=== PATIENT | male | born 1960 | race Caucasian/White ===

== ENCOUNTER 2017-01-18 12:21 | Emergency (ER) | payer MEDICAID ==
[~2017-01-18] VITALS: Ht 170.2 cm; Wt 73.5 kg
[2017-01-18 12:32] VITALS: BP 117/75; PULSE 64; RESP 16; TEMP 97.4; O2SAT 99
--- NOTE | 2017-01-18 12:39 | NUR ---
Patient to ER bed 6 to gown for evaluation. Side rails up. Report given to Renetta SCHWARTZ.
[2017-01-18] MEDS ORDERED: AZITHROMYCIN 250 MG TABLET PO ONE (13:00)
[2017-01-18] MEDS ORDERED: cefTRIAXone 250 MG in LIDOCAINE 1%, 20 ML MDV 0.9 ML IM ONE (13:00)
--- NOTE | 2017-01-18 13:00 | NUR ---
ER at bedside examining patient.
--- NOTE | 2017-01-18 13:19 | NUR ---
medicated per MD's order.
[2017-01-18 13:43] LABS: BILIRUBIN,URINE NEGATIVE (NEGATIVE); BLOOD, URINE NEGATIVE (NEGATIVE); CLARITY/URINE CLEAR (CLEAR); COLOR,URINE YELLOW (YELLOW); GLUCOSE,URINE NEGATIVE (NEGATIVE); KETONES,URINE NEGATIVE (NEGATIVE); LEUKOCYTE ESTERASE ,URINE NEGATIVE (NEGATIVE); NITRITE, URINE NEGATIVE (NEGATIVE); PH,URINE 5.5 (5.0-8.0); PROTEIN URINE NEGATIVE (NEGATIVE); UROBILINOGEN,URINE 0.2 (0.2-1.0)
--- NOTE | 2017-01-18 13:58 | NUR ---
Patient given written and verbal discharge instructions and verbalizes understanding. ER MD discussed with patient the results and treatment provided. Patient in stable condition. ID arm band removed. No Rx given. Patient educated on pain management and to follow up with PMD. Pain Scale 0/10. Opportunity for questions provided and answered.
[2017-01-18 13:59] VITALS: BP 117/75; PULSE 64; RESP 16; TEMP 97.4; O2SAT 99
[2017-01-21 22:20] LABS: CHLAMYDIA TRACHOMATIS NAA Negative (Negative); NEISSERIA GONORRHOEAE NAA Negative (Negative)
== END 2017-01-18 13:59 | disposition home or self-care (01) ==
LOC: SED 12:21
DX: N34.2 Other urethritis (principal); Z88.6 Allergy status to analgesic agent; Z88.5 Allergy status to narcotic agent
CPT/HCPCS: 81003; 87491; 87591; 96372; 99284; J0696; J2001; Q0144

== ENCOUNTER 2017-02-24 16:35 | Emergency (ER) | payer MEDICAID ==
[~2017-02-24] VITALS: Ht 172.7 cm; Wt 72.1 kg
[2017-02-24 16:39] VITALS: BP 121/93; PULSE 82; RESP 18; TEMP 98.3; O2SAT 98
--- NOTE | 2017-02-24 16:45 | NUR ---
Patient to ER bed 08 to gown for evaluation. Side rails up. Report given to Bethany
--- NOTE | 2017-02-24 16:46 | NUR ---
Received Pt in bed 8. Pt c/o stated having body aches, fever, pressure in ear, and sore throat x 3 days. Pt stated taking amoxicillin that he got from [place] for 3 days. Pt stated medication is not effective.
--- NOTE | 2017-02-24 16:48 | NUR ---
Teri BARON RN at the bedside evaluating Pt. Currently awaiting for new orders.
--- NOTE | 2017-02-24 17:01 | NUR ---
Patient given written and verbal discharge instructions and verbalizes understanding. ER MD discussed with patient the results and treatment provided. Given copies of tests performed in ER. Patient in stable condition. ID arm band removed. Rx of Augmentin and Zyrtec given. Patient educated on pain management and to follow up with PMD. Pain Scale 0/10. Opportunity for questions provided and answered. Addendum: 02/24/17 at 1702 by DOMITILA And Rx Motrin
== END 2017-02-24 16:59 | disposition home or self-care (01) ==
LOC: SED 16:35
DX: J01.90 Acute sinusitis, unspecified (principal); Z88.6 Allergy status to analgesic agent
CPT/HCPCS: 99283

== ENCOUNTER 2017-09-13 15:36 | Emergency (ER) | payer MEDICAID ==
[~2017-09-13] VITALS: Ht 170.2 cm; Wt 72.6 kg
[2017-09-13 15:36] VITALS: BP_SYST 133
[2017-09-13] MEDS ORDERED: PENICILLIN G BENZATHINE 1.2 MMU/2 ML SYR IM ONE (18:15)
[2017-09-13 18:32] VITALS: BP_SYST 133
== END 2017-09-13 18:32 | disposition home or self-care (01) ==
LOC: SED 15:36
DX: J02.0 Streptococcal pharyngitis (principal); Z88.6 Allergy status to analgesic agent
CPT/HCPCS: 96372; 99283; J0561